=== PATIENT | female | born 1980 | race Caucasian/White ===

== ENCOUNTER → 2021-12-05 | Outpatient (REF) | payer OTHER ==
[2021-12-06 11:31] LABS: GC DNA AMPLIFICATION NEGATIVE (NEGATIVE)
== END ==
LOC: M LAB REF 18:35
PROVIDERS: ATTEND Student in an Organized Health Care Education/Training Program
DX: N76.0 Acute vaginitis (principal)

== ENCOUNTER 2022-01-05 22:20 | Emergency (ER) | payer OTHER ==
[~2022-01-05] VITALS: Ht 170.2 cm; Wt 88.5 kg
[2022-01-06 02:36] VITALS: BP 105/67
[2022-01-06] MEDS ORDERED: BACITRACIN OINTMENT 30GM TUBE TOP ONE (07:30)
== END 2022-01-06 07:45 | disposition home or self-care (01) ==
LOC: M ED 22:20
DX: S90.852A Superficial foreign body, left foot, initial encounter (principal); Y28.0XXA Contact with sharp glass, undetermined intent, initial encounter; Y92.9 Unspecified place or not applicable; Y93.9 Activity, unspecified; Y99.9 Unspecified external cause status